=== PATIENT | female | born 1985 | race Hispanic/Latino ===

== ENCOUNTER 2017-10-10 19:17 | Emergency (ER) | payer SELFPAY ==
[2017-10-10 21:42] LABS: Absolute Lymphocytes (CBC) 3.7 K/uL (0.7-4.9); Absolute Monocytes 0.5 K/uL (0.1-1.3); Absolute Neutrophil 4.3 K/uL (1.8-8.0); Basophils % 0.6 % (0-1.3); Eosinophils % 2.5 % (0-4.4); Hematocrit 32.1 % (36.0-45.0); MCH 24.4 pg (27.0-35.0); MCV 73.3 fL (80-100); MPV 8.2 fL (7.6-11.3); Monocytes % 5.7 % (3.3-12.3); RBC Red Blood Cell Count 4.38 M/uL (3.86-4.86)
[2017-10-10 21:44] LABS: Urine Blood 2+ (NEG); Urine Glucose NEGATIVE (NEG); Urine Protein NEGATIVE (NEG); Urine Specific Gravity >1.030 (1.005-1.030); Urine pH 5.5 (5.0-7.0)
[2017-10-10 21:50] LABS: Potassium 3.3 mEq/L (3.6-5.0)
[2017-10-10 21:56] LABS: Albumin 3.9 g/dL (3.2-5.5); Bilirubin Direct 0.1 mg/dL (0-0.2); Bilirubin Total 0.3 mg/dL (0.3-1.2); Protein, Total 7.6 g/dL (6.0-8.3)
--- NOTE | 2017-10-10 22:20 | ER ---
Nurse's Notes [facility] Name: Libra Bentley Age: 32 yrs Sex: Female : 1985 Arrival Date: 10/10/2017 Time: 19:24 Bed 13 Private MD: Diagnosis: Anemia in chronic diseases classified elsewhere Presentation: 10/10 19:46 Presenting complaint: Patient states: Reports "movement" in abdomen for 2 months with aj nausea. Patient reports she has taken a home test and it is negative. Transition of care: patient was not received from another setting of care. Onset of symptoms was July 2017. Care prior to arrival: None. 19:46 Method Of Arrival: Ambulatory aj 19:46 Acuity: ISAIAS 3 aj 21:33 Risk Assessment: Do you want to hurt yourself or someone else? Patient reports no bs1 desire to harm self or others. Initial Sepsis Screen: Does the patient meet any 2 criteria? No. Patient's initial sepsis screen is negative. Does the patient have a suspected source of infection? No. Patient's initial sepsis screen is negative. Triage Assessment: 19:47 General: Appears in no apparent distress. comfortable, Behavior is calm, cooperative, aj appropriate for age. Pain: Denies pain. Neuro: Level of Consciousness is awake, alert, obeys commands, Oriented to person, place, time, situation, Appropriate for age. Respiratory: Airway is patent Respiratory effort is even, unlabored, Respiratory pattern is regular, symmetrical. GI: Abdomen is obese. GI: Reports nausea. Derm: Skin is intact, is healthy with good turgor, Skin is pink, warm \\T\\ dry. normal. 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 - Social history:: Smoking status: Patient/guardian denies using tobacco. - Ebola Screening: : Patient negative for fever greater than or equal to 101.5 degrees Fahrenheit, and additional compatible Ebola Virus Disease symptoms Patient denies exposure to infectious person. Screenin:33 Abuse screen: Denies threats or abuse. Denies injuries from another. Nutritional bs1 screening: No deficits noted. Tuberculosis screening: No symptoms or risk factors identified. Fall Risk None identified. Assessment: 20:10 General: Appears in no apparent distress. uncomfortable, Behavior is cooperative, bs1 anxious. Pain: Complains of pain in right upper abdomen Pain does not radiate. Neuro: Level of Consciousness is awake, alert, obeys commands, Oriented to person, place, time, situation, Appropriate for age Ordinary Seaman are equal bilaterally. Neuro: Reports dizziness. Cardiovascular: Denies chest pain, shortness of breath, Heart tones S1 S2 present Capillary refill < 3 seconds Patient's skin is warm and dry. Respiratory: Airway is patent Trachea midline Respiratory effort is even, unlabored, Respiratory pattern is regular, symmetrical, Breath sounds are clear bilaterally. GI: Abdomen is round Bowel sounds present X 4 quads. Abdomen is tender to palpation in right upper quadrant Reports nausea. : No deficits noted. No signs and/or symptoms were reported regarding the genitourinary system. EENT: No deficits noted. No signs and/or symptoms were reported regarding the EENT system. Derm: Skin is intact, Skin is pink, warm \\T\\ dry. Musculoskeletal: Circulation, motion, and sensation intact. Capillary refill < 3 seconds, Range of motion: intact in all extremities. 21:38 Reassessment: No changes from previously documented assessment. Patient and/or family bs1 updated on plan of care and expected duration. Pain level reassessed. Patient is alert, oriented x 3, equal unlabored respirations, skin warm/dry/pink. Orthostatic vitals taken. 22:45 Reassessment: Patient appears in no apparent distress at this time. Patient and/or bs1 family updated on plan of care and expected duration. Pain level reassessed. Patient is alert, oriented x 3, equal unlabored respirations, skin warm/dry/pink. Patient denies any dizziness at this time. Patient states symptoms have improved. Vital Signs: 19:47 BP 128 / 85; Pulse 82; Resp 19; Temp 97.9; Pulse Ox 99% on R/A; Weight 81.65 kg; Height aj 5 ft. 9 in. (175.26 cm); 20:30 BP 129 / 92; Pulse 70; Resp 17; Pulse Ox 97% on R/A; bs1 21:36 BP 112 / 82 LA Supine (auto/reg); Pulse 72 LA; Pulse Ox 98% on R/A; bs1 21:37 BP 122 / 79 LA Sitting (auto/reg); Pulse 86 LA; Pulse Ox 98% on R/A; bs1 21:38 BP 123 / 84 LA Standing (auto/reg); Pulse 73 LA; Pulse Ox 97% on R/A; bs1 22:00 BP 107 / 70; Pulse 65; Resp 16 S; Pulse Ox 97% on R/A; bs1 22:45 BP 110 / 70; Pulse 62; Resp 16; Temp 97.9(O); Pulse Ox 98% on R/A; bs1 19:47 Body Mass Index 26.58 (81.65 kg, 175.26 cm) aj ED Course: 19:24 Patient arrived in ED. al2 19:47 Triage completed. aj 19:47 Arm band placed on left wrist. Patient placed. aj 20:21 Jane Fleming, RN is Primary Nurse. bs1 20:34 Jemal Shirley PA is PHCP. cp 20:35 Rambo Garcia MD is Attending Physician. cp 21:15 EKG done, by ED staff, reviewed by Jemal AVERY. cc 21:17 Initial lab(s) drawn, by ri, sent to lab. Inserted saline lock: 20 gauge in right cc antecubital area, using aseptic technique. Blood collected. 21:20 Urine collected: clean catch specimen. cc 21:34 Patient has correct armband on for positive identification. Bed in low position. Call bs1 light in reach. Side rails up X 1. Pulse ox on. NIBP on. 22:36 PHCP role handed off by Jemal Shirley PA snw 22:36 Temitope Alvraez FNP-C is PHCP. snw 23:02 No provider procedures requiring assistance completed. IV discontinued, bleeding bs1 controlled, No redness/swelling at site. Pressure dressing applied. Administered Medications: 22:52 CANCELLED (other intervention used): TORadol 30 mg IVP once snw 22:53 CANCELLED (other intervention used): NS 0.9% 1000 ml IV at 1 bolus Per protocol; 1000 snw mL bolus Outcome: 22:20 Discharge ordered by . cp 23:02 Discharged to home ambulatory. bs1 23:02 Condition: stable 23:02 Discharge instructions given to patient, Instructed on discharge instructions, follow up and referral plans. Demonstrated understanding of instructions, follow-up care. 23:04 Patient left the ED. bs1 Signatures: Twyla Mena RN RN Temitope Rivera, AGRICULTURAL ECONOMIST-C AGRICULTURAL ECONOMIST-Csnw Sasha More cc Jemal Shirley PA PA cp Salazar, Brittany, RN RN bs1 Maria Bell Corrections: (The following items were deleted from the chart) 21:34 21:34 Urine collected: clean catch specimen, cc cc
--- NOTE | 2017-10-10 22:20 | EDPHYS ---
Physician Documentation [facility] Name: Libra Bentley Age: 32 yrs Sex: Female : 1985 Arrival Date: 10/10/2017 Time: 19:24 Bed 13 Private MD: ED Physician Rambo Garcia HPI: 10/10 20:46 This 32 yrs old Female presents to ER via Ambulatory with complaints of cp movement in abdomen, dizziness. 20:46 The patient presents with intra-abdominal movement. Onset: The symptoms/episode cp began/occurred 2 month(s) ago. The symptoms do not radiate. Associated signs and symptoms: Pertinent positives: intermittent dizziness noticed prior to exercising, Pertinent negatives: anorexia, chest pain, constipation, diarrhea, fever, vomiting, abdominal pain. 20:46 Patient denies any current dizziness or feeling of "intra-abdominal" movement. 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 - Social history:: Smoking status: Patient/guardian denies using tobacco. - Ebola Screening: : Patient negative for fever greater than or equal to 101.5 degrees Fahrenheit, and additional compatible Ebola Virus Disease symptoms Patient denies exposure to infectious person. ROS: 20:50 Constitutional: Negative for body aches, chills, fever, poor PO intake. cp 20:50 Eyes: Negative for injury, pain, redness, and discharge. cp 20:50 ENT: Negative for drainage from ear(s), ear pain, sore throat, difficulty swallowing, difficulty handling secretions. 20:50 Cardiovascular: Negative for chest pain, edema, palpitations. 20:50 Respiratory: Negative for cough, shortness of breath, wheezing. 20:50 Abdomen/GI: Positive for as noted, Negative for abdominal pain, nausea, vomiting, and diarrhea, constipation, anorexia, dysphagia, black/tarry stool, rectal bleeding. Exam: 21:00 Constitutional: The patient appears in no acute distress, alert, awake, non-toxic, well cp developed, well nourished. 21:00 Head/Face: Normocephalic, atraumatic. Eyes: Pupils equal round and reactive to light, cp extra-ocular motions intact. Lids and lashes normal. Conjunctiva and sclera are non-icteric and not injected. Cornea within normal limits. Periorbital areas with no swelling, redness, or edema. ENT: Nares patent. No nasal discharge, no septal abnormalities noted. Tympanic membranes are normal and external auditory canals are clear. Oropharynx with no redness, swelling, or masses, exudates, or evidence of obstruction, uvula midline. Mucous membranes moist. Chest/axilla: Normal chest wall appearance and motion. Nontender with no deformity. No lesions are appreciated. Cardiovascular: Regular rate and rhythm with a normal S1 and S2. No gallops, murmurs, or rubs. Normal PMI, no JVD. No pulse deficits. Respiratory: Lungs have equal breath sounds bilaterally, clear to auscultation and percussion. No rales, rhonchi or wheezes noted. No increased work of breathing, no retractions or nasal flaring. Abdomen/GI: Soft, non-tender, with normal bowel sounds. No distension or tympany. No guarding or rebound. No evidence of tenderness throughout. Skin: Warm, dry with normal turgor. Normal color with no rashes, no lesions, and no evidence of cellulitis. MS/ Extremity: Pulses equal, no cyanosis. Neurovascular intact. Full, normal range of motion. Neuro: Awake and alert, GCS 15, oriented to person, place, time, and situation. Cranial nerves II-XII grossly intact. Motor strength 5/5 in all extremities. Sensory grossly intact. Cerebellar exam normal. Normal gait. 21:20 ECG was reviewed by the Attending Physician. cp Vital Signs: 19:47 BP 128 / 85; Pulse 82; Resp 19; Temp 97.9; Pulse Ox 99% on R/A; Weight 81.65 kg; Height aj 5 ft. 9 in. (175.26 cm); 20:30 BP 129 / 92; Pulse 70; Resp 17; Pulse Ox 97% on R/A; bs1 21:36 BP 112 / 82 LA Supine (auto/reg); Pulse 72 LA; Pulse Ox 98% on R/A; bs1 21:37 BP 122 / 79 LA Sitting (auto/reg); Pulse 86 LA; Pulse Ox 98% on R/A; bs1 21:38 BP 123 / 84 LA Standing (auto/reg); Pulse 73 LA; Pulse Ox 97% on R/A; bs1 22:00 BP 107 / 70; Pulse 65; Resp 16 S; Pulse Ox 97% on R/A; bs1 22:45 BP 110 / 70; Pulse 62; Resp 16; Temp 97.9(O); Pulse Ox 98% on R/A; bs1 19:47 Body Mass Index 26.58 (81.65 kg, 175.26 cm) aj MDM: 20:35 Patient medically screened. cp 21:00 Differential diagnosis: urinary tract infection, electrolyte abnormality, cardiac cp arrythmia. 22:53 Data reviewed: vital signs, nurses notes. Data interpreted: Pulse oximetry: on room air snw is 97 %. Counseling: I had a detailed discussion with the patient and/or guardian regarding: the historical points, exam findings, and any diagnostic results supporting the discharge/admit diagnosis, the presence of at least one elevated blood pressure reading (>120/80) during this emergency department visit, lab results, the need for outpatient follow up, to return to the emergency department if symptoms worsen or persist or if there are any questions or concerns that arise at home. Special discussion: Based on the patient's Hx, exam, and Dx evaluation, there is no indication for emergent surgery or inpatient Tx. It is understood by the patient/guardian that if the Sx's persist or worsen they need to return immediately for re-evaluation. I have referred the patient to see his PCP for further evaluation of high blood pressure. Based on the history and exam findings, there is no indication for further emergent testing or inpatient evaluation. I discussed with the patient/guardian the need to see the primary care provider for further evaluation of the symptoms. 10/10 20:49 Order name: Amylase, Serum; Complete Time: 21:59 cp 10/10 20:49 Order name: Basic Metabolic Panel; Complete Time: 21:59 cp 10/10 21:59 Interpretation: Normal except: K 3.3; GLUC 123; GFR 88. cp 10/10 20:49 Order name: CBC with Diff; Complete Time: 21:53 cp 10/10 21:53 Interpretation: Normal except: HGB 10.7; HCT 32.1; MCV 73.3; MCH 24.4; RDW 16.8. cp 05/ 20:49 Order name: Creatinine for Radiology; Complete Time: 21:53 cp 10/10 20:49 Order name: Hepatic Function; Complete Time: 21:59 cp 10/10 21:59 Interpretation: Normal except: GLOB 3.7. cp 05/ 20:49 Order name: Lipase; Complete Time: 21:59 cp 10/10 20:49 Order name: Urine Test (obtain specimen); Complete Time: 21:32 cp 10/10 20:49 Order name: Urine Microscopic Only; Complete Time: 22:36 cp 10/10 21:01 Order name: EKG; Complete Time: 21:05 cp 10/10 21:26 Order name: Test, Serum; Complete Time: 22:12 cp 10/10 22:13 Interpretation: Reviewed. cp 10/10 21:36 Order name: Urine Dipstick--Ancillary (enter results); Complete Time: 21:53 ms 10/10 21:53 Interpretation: Normal except: UBLD 2+. cp 10/10 21:36 Order name: Urine --Ancillary (enter results); Complete Time: 21:53 ms 10/10 20:49 Order name: IV Saline Lock; Complete Time: 21:32 cp 10/10 20:49 Order name: Labs collected and sent; Complete Time: 21:33 cp 10/10 20:49 Order name: Urine Dipstick-Ancillary (obtain specimen); Complete Time: 21:33 cp 10/10 20:49 Order name: Orthostatics; Complete Time: 21:57 cp 10/10 21:01 Order name: EKG - Nurse/Tech; Complete Time: 21:32 cp EC:20 Rate is 69 beats/min. Rhythm is regular. NH interval is normal. QRS interval is normal. cp QT interval is normal. T waves are Normal. No ST changes noted. Interpreted by me. Reviewed by me. Administered Medications: 22:52 CANCELLED (other intervention used): TORadol 30 mg IVP once snw 22:53 CANCELLED (other intervention used): NS 0.9% 1000 ml IV at 1 bolus Per protocol; 1000 snw mL bolus Disposition: 10/11 01:03 Co-signature as Attending Physician, Rambo Garcia MD available for consultation at ps1 all times. . Disposition: 10/10/17 22:20 Discharged to Home. Impression: Anemia in chronic diseases classified elsewhere. - Condition is Stable. - Discharge Instructions: Anemia, Nonspecific. - Medication Reconciliation Form, Thank You Letter, Antibiotic Education, Prescription Opioid Use form. - Follow up: Private Physician; When: 1 - 2 days; Reason: Recheck today's complaints. - Problem is new. - Symptoms are unchanged. Signatures: Dispatcher [employer] EDTwyla Ward, RN RN Temitope Rivera, RENETTA-Truman RETAIL EVENT ASSISTANT-Csnw Jemal Shirley PA PA cp Rambo Garcia MD MD ps1 Jane Fleming RN RN bs1 Corrections: (The following items were deleted from the chart) 10/10 21:59 21:53 Normal except: K 3.3; GLUC 123. cp cp 22:52 22:42 TORadol 30 mg IVP once ordered. snw snw 22:53 22:42 NS 0.9% 1000 ml IV at 1 bolus Per protocol; 1000 mL bolus ordered. snw snw 23:04 22:20 10/10/2017 22:20 Discharged to Home. Impression: Anemia in chronic diseases bs1 classified elsewhere. Condition is Stable. Forms are Medication Reconciliation Form, Thank You Letter, Antibiotic Education, Prescription Opioid Use. Follow up: Private Physician; When: 1 - 2 days; Reason: Recheck today's complaints. Problem is new. Symptoms are unchanged. cp
[2017-10-10 22:27] LABS: Urine Amorphous Sediment 3+ /HPF (NONE SEEN); Urine Bacteria 20-50 /HPF (<20); Urine Culture Reflex Order ND; Urine Mucus 4+ /HPF (NONE SEEN)
--- NOTE | 2017-10-11 06:42 | EKG ---
Test Date: 2017-10-10 Test Time: 21:12:55 Foundry Tender: PING MEASUREMENT RESULTS: Intervals: Rate: 69 MN: 174 QRSD: 88 QT: 372 QTc: 398 [place]: P: 26 MN: 174 QRS: 31 T: 53 INTERPRETIVE STATEMENTS: Normal sinus rhythm Normal ECG No previous ECG available for comparison Electronically Signed On 10-11-17 06:42:08 CDT by Kelvin Nunes
== END 2017-10-10 23:04 | disposition home or self-care (01) ==
LOC: ER 19:17
DX: D63.8 Anemia in other chronic diseases classified elsewhere (principal)
CPT/HCPCS: 36415; 80048; 80076; 81003; 81015; 81025; 82150; 83690; 84703; 85025; 93005; 99284

== ENCOUNTER 2020-12-11 16:20 | Emergency (ER) | payer SELFPAY ==
[2020-12-11] MEDS ORDERED: IBUPROFEN 400 MG TAB ONE (18:01)
[2020-12-11 20:02] LABS: Absolute Lymphocytes (CBC) 1.5 K/uL (0.7-4.9); Basophils % 0.3 % (0-1.3); Hematocrit 30.8 % (36.0-45.0); Lymphocytes % 28.9 % (15.3-44.8); MPV 8.4 fL (7.6-11.3); RBC Red Blood Cell Count 4.43 M/uL (3.86-4.86)
[2020-12-11] MEDS ORDERED: METHYLPREDNISOLONE 125 MG INJ ONE (20:09)
[2020-12-11] MEDS ORDERED: NA CHLORIDE 0.9% 1,000 ML ONE (20:10)
[2020-12-11] MEDS ORDERED: ONDANSETRON 4 MG/2 ML VIAL ONE (20:10)
[2020-12-11] MEDS ORDERED: FAMOTIDINE 20 MG/2 ML VIAL IV ONE (20:10)
[2020-12-11] MEDS ORDERED: HYDROCODONE/CHLORPHEN 5 ML/OSYR ONE (20:10)
[2020-12-11 20:20] LABS: Protime INR 1.21
[2020-12-11 20:26] LABS: ALT/SGPT 74 U/L (12-78); AST/SGOT 46 U/L (15-37); Albumin 3.6 g/dL (3.4-5.0); Alkaline Phosphatase 99 U/L (45-117); BUN Blood Urea Nitrogen 10 mg/dL (7-18); Bicarbonate 26 mmol/L (21-32); Bilirubin Direct < 0.1 mg/dL (0-0.2); Bilirubin Total 0.3 mg/dL (0.2-1.0); Glucose Level 113 mg/dL (74-106); Magnesium 2.3 mg/dL (1.8-2.4); NT PRO-BNP 22 pg/mL (<125); Potassium 3.2 mmol/L (3.5-5.1); Protein, Total 7.7 g/dL (6.4-8.2); Sodium Level 138 mmol/L (136-145); Troponin (Emerg Dept Use Only) < 0.02 ng/mL (0.0-0.045)
--- NOTE | 2020-12-11 21:47 | EDPHYS ---
Physician Documentation [facility] Name: Libra Bentley Age: 35 yrs Sex: Female : 1985 Arrival Date: 12/11/2020 Time: 16:22 Bed 20 Private MD: ED Physician Jemal Romano HPI: 12/11 19:00 This 35 yrs old Female presents to ER via Ambulatory with complaints of Cant cp Eat, Cough - Covid +. 19:00 The patient or guardian reports cough, that is constant, with productive sputum, cp difficulty breathing. 19:00 Onset: The symptoms/episode began/occurred gradually, and became worse 2 day(s) ago. cp 19:00 Severity of symptoms: in the emergency department the symptoms are unchanged, despite cp home interventions. 19:00 Associated signs and symptoms: Pertinent positives: chest pain, with cough, fever, cp nausea. 19:00 Patient reports recently testing positive for COVID-19. 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 - Social history:: Smoking status: Patient denies any tobacco usage or history of. Patient uses alcohol, occasionally. ROS: 19:05 Constitutional: Positive for body aches, fever, poor PO intake. cp 19:05 Eyes: Negative for injury, pain, redness, and discharge. cp 19:05 ENT: Negative for ear pain, difficulty swallowing, difficulty handling secretions. 19:05 Cardiovascular: Positive for chest pain, with cough. 19:05 Respiratory: Positive for cough, "sounds productive", shortness of breath, Negative for wheezing. 19:05 Abdomen/GI: Positive for nausea. 19:05 Neuro: Negative for altered mental status. 19:05 All other systems are negative. Exam: 19:10 Constitutional: The patient appears in no acute distress, alert, awake, cp non-diaphoretic, non-toxic, well developed, well nourished, uncomfortable. 19:10 Head/Face: Normocephalic, atraumatic. cp 19:10 Eyes: Periorbital structures: appear normal, Conjunctiva: normal, no exudate, no injection, Sclera: no appreciated abnormality, Lids and lashes: appear normal, bilaterally. 19:10 ENT: External ear(s): are unremarkable, Nose: is normal, Mouth: Lips: moist, Oral mucosa: pink and intact, moist, Posterior pharynx: Airway: no evidence of obstruction, patent, Tonsils: are normal in appearance, erythema, is not appreciated, exudate, is not appreciated. 19:10 Neck: ROM/movement: is normal, is supple, no meningismus, no nuchal rigidity. 19:10 Chest/axilla: Inspection: normal. 19:10 Cardiovascular: Rate: tachycardic, Rhythm: regular, Edema: is not appreciated, JVD: is not appreciated. 19:10 Respiratory: the patient does not display signs of respiratory distress, Respirations: labored breathing, is not present, intercostal retractions, are absent, shallow respirations, that is mild, Breath sounds: bronchial sounds, that are mild, are heard diffusely, decreased breath sounds, are not appreciated, wheezing: is not appreciated. 19:10 Abdomen/GI: Inspection: abdomen appears normal, Palpation: abdomen is soft and non-tender, in all quadrants. 19:10 Back: pain, is absent, ROM is normal. 19:10 Skin: no rash present. 19:10 Neuro: Orientation: to person, place \\T\\ time. Mentation: is normal, Cerebellar function: is grossly normal, Motor: moves all fours, strength is normal, Sensation: is normal. 20:35 ECG was reviewed by the Attending Physician. cp Vital Signs: 17:31 BP 132 / 91; Pulse 119; Resp 22; Temp 102.4(O); Pulse Ox 96% on R/A; Weight 87.14 kg kg (M); Height 5 ft. 9 in. (175.26 cm); Pain 7/10; 18:43 BP 118 / 79; Pulse 108; Resp 19; Pulse Ox 96% on R/A; ap3 18:48 Temp 99.2(T); ap3 18:49 Temp 99.8(T); ap3 17:31 Body Mass Index 28.37 (87.14 kg, 175.26 cm) kg MDM: 18:54 Patient medically screened. cp 19:00 Differential Diagnosis: Influenza Pneumonia Other sepsis, respiratory distress. cp 21:47 Data reviewed: vital signs, nurses notes, lab test result(s), EKG, radiologic studies, cp plain films. 21:47 Test interpretation: by ED physician or midlevel provider: ECG, plain radiologic cp studies. Counseling: I had a detailed discussion with the patient and/or guardian regarding: the historical points, exam findings, and any diagnostic results supporting the discharge/admit diagnosis, lab results, radiology results, to return to the emergency department if symptoms worsen or persist or if there are any questions or concerns that arise at home. Response to treatment: the patient's symptoms have markedly improved after treatment, VSS. Cough markedly improved. No signs of respiratory distress and patient appears non-toxic. Will discharge to home for continued monitoring. 12/11 18:54 Order name: Basic Metabolic Panel 12/11 18:54 Order name: CBC with Diff; Complete Time: 21:06 cp 12/11 21:06 Interpretation: Normal except: HGB 10.1; HCT 30.8; MCV 69.6; MCH 22.8; RDW 16.6. 12/11 18:54 Order name: LFT's; Complete Time: 21:06 cp 12/11 21:06 Interpretation: Normal except: AST 46; GLOB 4.1; A/G 0.9. cp 12/11 18:54 Order name: Magnesium; Complete Time: 21:06 cp 12/11 18:54 Order name: NT PRO-BNP; Complete Time: 21:06 cp 12/11 18:54 Order name: PT-INR; Complete Time: 21:06 cp 12/11 21:06 Interpretation: Abnormal: PT 14.0. cp 12/11 17:38 Order name: XRAY Chest (1 view) kg 12/11 18:54 Order name: Troponin (emerg Dept Use Only); Complete Time: 21:06 cp 12/11 18:54 Order name: D-Dimer; Complete Time: 21:06 cp 12/11 18:54 Order name: Basic Metabolic Panel; Complete Time: 21:06 EDMS 12/11 21:07 Interpretation: Normal except: K 3.2; GLUC 113; CA 8.0. cp 12/11 21:33 Order name: INCENTIVE SPIROMETRY cp 12/11 18:54 Order name: EKG; Complete Time: 18:55 cp 12/11 18:54 Order name: Cardiac monitoring; Complete Time: 21:59 cp 12/11 18:54 Order name: EKG - Nurse/Tech; Complete Time: 21:59 cp 12/11 18:54 Order name: IV Saline Lock; Complete Time: 19:56 cp 12/11 18:54 Order name: Labs collected and sent; Complete Time: 19:56 cp 12/11 18:54 Order name: O2 Per Protocol; Complete Time: 18:57 cp 12/11 18:54 Order name: O2 Sat Monitoring; Complete Time: 18:57 cp 12/11 21:32 Order name: PO challenge; Complete Time: 21:58 cp EC:35 Rate is 89 beats/min. Rhythm is regular. IL interval is normal. QRS interval is normal. cp QT interval is normal. T waves are Inverted in leads aVL, aVR. Interpreted by me. Reviewed by me. Administered Medications: 17:40 Drug: Motrin (ibuprofen) 800 mg Route: PO; kg 18:48 Follow up: Temp 99.2 Tympanic ap3 19:55 Drug: SOLU-Medrol (methylPrednisoLONE) 125 mg Route: IVP; Site: right antecubital; bs2 21:24 Follow up: Response: No adverse reaction bs2 19:55 Drug: Tussionex Pennkinetic ER (chlorpheniramine-hydrocodone) Suspension 5 ml Route: PO;bs2 21:24 Follow up: Response: No adverse reaction bs2 19:56 Drug: NS 0.9% 1000 ml Route: IV; Rate: 1 bolus; Site: right antecubital; bs2 12/12 07:26 Follow up: IV Status: Completed infusion bs2 12/11 19:56 Drug: Zofran (Ondansetron) 4 mg Route: IVP; Site: right antecubital; bs2 21:24 Follow up: Response: No adverse reaction bs2 19:56 Drug: Pepcid (famotidine) 20 mg Route: IVP; Site: right antecubital; bs2 21:24 Follow up: Response: No adverse reaction bs2 21:58 Drug: Potassium Effervescent Tablet 50 mEq Route: PO; bs2 21:59 Follow up: Response: No adverse reaction bs2 Disposition: 12/12 06:59 Co-signature as Attending Physician, Jemal Juan Antonio MD I agree with the assessment and [facility] plan of care. Disposition Summary: 12/11/20 21:47 Discharge Ordered Location: Home cp Problem: new cp Symptoms: have improved cp Condition: Stable cp Diagnosis - Other viral pneumonia cp - Nausea with vomiting, unspecified cp Followup: cp - With: Emergency Department - When: As needed - Reason: Worsening of condition Discharge Instructions: - Discharge Summary Sheet cp - Nausea and Vomiting, Adult cp - COVID-19 cp - Things to Know about the COVID-19 Pandemic - [facility] cp - Frequently Asked Questions About COVID-19 Vaccination - [facility] cp - COVID-19: Quarantine vs. Isolation - [facility] cp - Prevent the Spread of COVID-19 if You Are Sick - [facility] cp Forms: - Medication Reconciliation Form cp - Thank You Letter cp - Antibiotic Education cp - Prescription Opioid Use cp Prescriptions: - albuterol sulfate 90 mcg/actuation Inhalation HFA aerosol inhaler - inhale 2 puff by INHALATION route every 4-6 hours; 1 Inhaler; Refills: 0, cp Product Selection Permitted - Zofran 4 mg Oral Tablet - take 1 tablet by ORAL route every 12 hours As needed; 20 tablet; Refills: 0, cp Product Selection Permitted - Tessalon Perles 100 mg Oral Capsule - take 2 capsule by ORAL route every 8 hours As needed; 30 capsule; Refills: 0, cp Product Selection Permitted - Zithromax Z-Tyler 250 mg Oral Tablet - take 1 tablet by ORAL route as directed for 5 days Day 1 - take two (2) tablets cp one time. Day 2, 3, 4 , 5 take one (1) tablet once daily.; 6 tablet; Refills: 0, Product Selection Permitted - Prednisone 20 mg Oral Tablet - take 2 tablets by ORAL route once daily for 5 days then take 1 tablet daily for cp 5 days; 15 tablet; Refills: 0, Product Selection Permitted Signatures: Dispatcher [employer] Jemal Hassan MD MD cha Page, Corey, PA PA cp Dipika Peralta, RN RN kg Kimberli Yost RN RN bs2 Twyla Zhao RN ap3 Corrections: (The following items were deleted from the chart) 12/11 21:07 21:06 Normal except: K 3.2; GLUC 113. cp cp
--- NOTE | 2020-12-11 21:47 | RAD REPORT ---
EXAM DESCRIPTION: [facility] Single View12/11/2020 9:09 pm CLINICAL HISTORY: Cough COMPARISON: 2014 FINDINGS: Lungs appear mildly hazy. Heart is normal size IMPRESSION: Lungs appear mildly hazy which may indicate a mild pneumonia
--- NOTE | 2020-12-11 21:47 | ER ---
Nurse's Notes [facility] Name: Libra Bentley Age: 35 yrs Sex: Female : 1985 Arrival Date: 12/11/2020 Time: 16:22 Bed 20 Private MD: Diagnosis: Other viral pneumonia;Nausea with vomiting, unspecified Presentation: 12/11 17:31 Chief complaint: Patient states: Unable to sleep due to coughing, vomiting x 2 days, kg weakness, fever. Took tylenol last at 1300. Coronavirus screen: Client presents with at least one sign or symptom that may indicate coronavirus-19. Standard/surgical mask placed on the client. Provider contacted for isolation considerations. Client reports previous positive COVID test result. Date of collection: December 05, 2020. Ebola Screen: Patient negative for fever greater than or equal to 101.5 degrees Fahrenheit, and additional compatible Ebola Virus Disease symptoms Patient denies exposure to infectious person. Patient denies travel to an Ebola-affected area in the 21 days before illness onset. Initial Sepsis Screen: Does the patient meet any 2 criteria? No. Patient's initial sepsis screen is negative. Does the patient have a suspected source of infection? No. Patient's initial sepsis screen is negative. Risk Assessment: Do you want to hurt yourself or someone else? Patient reports no desire to harm self or others. Onset of symptoms was December 01, 2020. 17:31 Method Of Arrival: Ambulatory kg 17:31 Acuity: ISAIAS 3 kg Triage Assessment: 17:34 General: Appears uncomfortable, Behavior is calm, cooperative, appropriate for age, kg quiet. Pain: Complains of pain in face, back and chest Pain radiates to Generalized Pain currently is 7 out of 10 on a pain scale. at worst was 8 out of 10 on a pain scale. level that patient reports is acceptable is 5 out of 10 on a pain scale. Quality of pain is described as aching. 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 - Social history:: Smoking status: Patient denies any tobacco usage or history of. Patient uses alcohol, occasionally. Screenin:37 Abuse screen: Denies threats or abuse. Denies injuries from another. Nutritional kg screening: No deficits noted. Tuberculosis screening: No symptoms or risk factors identified. Fall Risk None identified. Assessment: 18:39 General: Appears uncomfortable, Behavior is calm, cooperative, Reports chills for fever ap3 for feeling ill for. Pain: Complains of pain in chest and back and face-generalized pain and weakness Pain does not radiate. Pain began 1-2 weeks ago Is continuous, Current management is with Tylenol, motrin. Neuro: Level of Consciousness is awake, alert, obeys commands, Oriented to person, place, time, situation, Appropriate for age Moves all extremities. Gait is steady, Speech is normal. Cardiovascular: Capillary refill < 3 seconds Patient's skin is warm and dry. Respiratory: Reports cough that is dry, persistent pain with cough Airway is patent Respiratory effort is even, unlabored, Respiratory pattern is regular, symmetrical. GI: Reports nausea, lack of appetite. : No signs and/or symptoms were reported regarding the genitourinary system. EENT: No signs and/or symptoms were reported regarding the EENT system. Derm: No signs and/or symptoms reported regarding the dermatologic system. Vital Signs: 17:31 BP 132 / 91; Pulse 119; Resp 22; Temp 102.4(O); Pulse Ox 96% on R/A; Weight 87.14 kg kg (M); Height 5 ft. 9 in. (175.26 cm); Pain 7/10; 18:43 BP 118 / 79; Pulse 108; Resp 19; Pulse Ox 96% on R/A; ap3 18:48 Temp 99.2(T); ap3 18:49 Temp 99.8(T); ap3 17:31 Body Mass Index 28.37 (87.14 kg, 175.26 cm) kg ED Course: 16:22 Patient arrived in ED. ds1 17:34 Triage completed. kg 17:34 Antipyretic given from triage as ordered by the ER provider. Arm band placed on right kg wrist. 17:37 Patient has correct armband on for positive identification. kg 18:37 Twyla Zhao, KAMAR is Primary Nurse. ap3 18:52 [facility] cp 18:52 Jemal Romano MD is Attending Physician. cp 19:55 Basic Metabolic Panel Sent. bs2 19:55 D-Dimer Sent. bs2 19:55 Basic Metabolic Panel Sent. bs2 19:55 CBC with Diff Sent. bs2 19:55 LFT's Sent. bs2 19:55 Magnesium Sent. bs2 19:55 NT PRO-BNP Sent. bs2 19:55 PT-INR Sent. bs2 19:56 Troponin (emerg Dept Use Only) Sent. bs2 21:09 XRAY Chest (1 view) In Process Unspecified. EDMS 21:58 INCENTIVE SPIROMETRY Sent. bs2 22:00 No provider procedures requiring assistance completed. IV discontinued, intact, bs2 bleeding controlled, No redness/swelling at site. Administered Medications: 17:40 Drug: Motrin (ibuprofen) 800 mg Route: PO; kg 18:48 Follow up: Temp 99.2 Tympanic ap3 19:55 Drug: SOLU-Medrol (methylPrednisoLONE) 125 mg Route: IVP; Site: right antecubital; bs2 21:24 Follow up: Response: No adverse reaction bs2 19:55 Drug: Tussionex Pennkinetic ER (chlorpheniramine-hydrocodone) Suspension 5 ml Route: PO;bs2 21:24 Follow up: Response: No adverse reaction bs2 19:56 Drug: NS 0.9% 1000 ml Route: IV; Rate: 1 bolus; Site: right antecubital; bs2 12/12 07:26 Follow up: IV Status: Completed infusion bs2 12/11 19:56 Drug: Zofran (Ondansetron) 4 mg Route: IVP; Site: right antecubital; bs2 21:24 Follow up: Response: No adverse reaction bs2 19:56 Drug: Pepcid (famotidine) 20 mg Route: IVP; Site: right antecubital; bs2 21:24 Follow up: Response: No adverse reaction bs2 21:58 Drug: Potassium Effervescent Tablet 50 mEq Route: PO; bs2 21:59 Follow up: Response: No adverse reaction bs2 Outcome: 21:47 Discharge ordered by . cp 22:09 Patient left the ED. tt3 22:10 Discharged to home ambulatory, with family. bs2 22:10 Condition: improved 22:10 Discharge instructions given to patient, family, Instructed on discharge instructions, follow up and referral plans. medication usage, Demonstrated understanding of instructions, follow-up care, medications, Prescriptions given X 4. Signatures: Dispatcher [employer] Leann Hancock ds1 Jemal Shirley PA PA cp Prokisch, Amanda RN RN ap3 Wero Norton tt3 Dipika Peralta RN RN Kimberli Houston RN RN bs2 Corrections: (The following items were deleted from the chart) 18:48 18:39 GI: Reports lack of appetite ap3 ap3
[2020-12-11] MEDS ORDERED: POTASSIUM 25 MEQ EFFERV TAB ONE (22:09)
[2020-12-11 22:20] VITALS: O2SAT 96
[2020-12-11 22:21] VITALS: BP 118/79
[2020-12-11 22:23] VITALS: TEMP 99.8
== END 2020-12-11 22:09 | disposition home or self-care (01) ==
LOC: ER 16:20
DX: J12.89 Other viral pneumonia (principal); R11.2 Nausea with vomiting, unspecified; Z86.16 Personal history of COVID-19
CPT/HCPCS: 36415; 71045; 80048; 80076; 83735; 83880; 84484; 85025; 85379; 85610; 93005; 96361; 96374; 96375; 99284; J2405; J2930; J7030